=== PATIENT | female | born 1965 | race Caucasian/White ===

== ENCOUNTER 2020-02-15 16:33 | Emergency (ER) | payer OTHER, SELFPAY ==
[2020-02-15 16:41] VITALS: BP 122/80; PULSE 116; RESP 14; TEMP 37.1; O2SAT 96; BMI 37.2
[2020-02-15] MEDS: ondansetron 4 MG Tablet PO (16:50)
[2020-02-15 17:49] LABS: Basophils % 0.1 %; Eosinophils % 0.1 %; Hematocrit 50.6 % (37.0-47.0); Hemoglobin 16.7 g/dL (11.5-15.3); Lymphocytes # 0.6 10^3/uL (0.8-4.8); Lymphocytes % 4.3 %; Mean Corpuscular Hemoglobin 29.7 pg (28.0-34.0); Mean Corpuscular Volume 89.9 fL (81-99); Mean Platelet Volume 9.5 fL (7.4-10.4); Monocytes # 0.2 10^3/uL (0.2-0.9); Monocytes % 1.5 %; Neutrophils # 13.2 10^3/uL (1.8-7.7); Neutrophils % 93.7 %; Nucleated Red Blood Cells % 0 %; Platelet Count 228 10^3/cmm (130-400); Red Blood Count 5.63 10^6/uL (4.1-5.3); Red Cell Distribution Width 12.8 % (12.1-15.1); White Blood Count 14.1 10^3/uL (4.0-10.0)
[2020-02-15 18:13] LABS: Alanine Aminotransferase 26 U/L (0-33); Albumin Level 4.5 g/dL (3.5-5.2); Alkaline Phosphatase 86 IU/L (35-105); Anion Gap 18.4 (5-19); Aspartate Amino Transferase 25 U/L (0-32); Blood Urea Nitrogen 17 mg/dL (6-20); Calcium 10.3 mg/dL (8.5-10.5); Carbon Dioxide 24 mmol/L (22-29); Chloride 100 mmol/L (98-107); Globulin 2.9 g/dL (1.3-4.6); Glomerular Filtration Rate 74.5 mL/min (90-130); Glucose 177 mg/dL (65-115); Lipase 19 U/L (13-60); Osmolality Calculated 287 mOsm/kg (285-295); Potassium 4.4 mmol/L (3.5-5.1); Sodium 138 mmol/L (136-145); Total Bilirubin 0.5 mg/dL (0.15-1.2); Total Protein 7.4 g/dL (6.6-8.7)
--- NOTE | 2020-02-15 18:23 | US_ITS ---
WS: [id number] RIGHT UPPER QUADRANT ULTRASOUND HISTORY: Pain COMPARISON: None available. Liver: 19.0 cm in length. Mildly enlarged liver with diffuse hepatic steatosis and attenuation. Focal fatty sparing near the gallbladder fossa. The entire liver is not evaluated adequately due to exclud e neoplasm or mass. No bile duct dilatation. Gallbladder: Normally distended gallbladder with no stones or wall thickening. CBD: 0.5 cm Pancreas: Normal size and echogenicity. Right kidney: 11.6 cm in length. Normal size and echogenicity. No hydronephrosis. Cortical cyst in th e mid kidney measures 1.3 x 1.9 x 1.1 cm. No solid mass. Aorta and IVC: Unremarkable. No ascites. US/US gall bladder [id number] IMPRESSION: 1. Normal gallbladder. 2. Moderate hepatomegaly with severe hepatic steatosis and areas of sparing.
--- NOTE | 2020-02-15 18:32 | W.ED.ABDPA2 ---
HPI - Abdominal Pain General: Chief Complaint: Abdominal Pain Stated Complaint: abd pain, n/v Time Seen by Provider: 02/15/20 18:14 Source: patient and family Mode of arrival: ambulatory Limitations: no limitations History of Present Illness: HPI narrative: Staci is a 54-year-old female who comes in complaining of not quite 24 hours of pain in her right flank and right upper quadrant. She says it started with UTI symptoms last night and then at 4 AM she developed right upper quadrant and right flank pain. She is had numerous episodes of vomiting but denies any diarrhea. The patient states she is chronically constipated secondary to pain medications that she takes. Denies any chest pain or shortness of breath. She denies any blood in her emesis. Patient states she feels like this is just a bad UTI. She is unaware of anything that makes her symptoms better or worse. She is really not tried anything at home for this other than just resting. Associated Symptoms: Reports vomiting; Denies chills, coffee ground emesis, GI cramping, diarrhea, dysuria, fever(s), heartburn, hematochezia, hematuria, hematemesis, melena and syncope Review of Systems Const: Denies: fever(s), chills, body aches, fatigue, malaise or diaphoresis Eyes: Denies: change in vision, blurry vision, blind spots or photophobia ENMT: Denies: throat pain, odynophagia, hoarseness, swelling of lips/tongue, ear or mastoid pain, ear discharge, change in hearing or nasal discharge Card: Denies: chest pain, palpitations, irregular heart rhythm, edema, lightheadedness, syncope, pre-syncope, dyspnea on exertion or orthopnea Resp: Denies: dyspnea, productive cough, non-productive cough, wheezing, hemoptysis or chest congestion GI: Reports: abdominal pain and vomiting; Denies: hematemesis, coffee ground emesis, heartburn, diarrhea, GI cramping, hematochezia or melena : Denies: flank pain, dysuria, urinary frequency, urinary urgency or hematuria Musc: Denies: neck pain, back pain, extremity pain, extremity swelling, joint pain, joint swelling, joint redness, joint warmth or joint stiffness Skin/Breast: Denies: rash, pruritus, erythema, skin tenderness or jaundice Neuro: Denies: headache(s), numbness in extremities, weakness in extremities, sensory changes, lack of coordination, difficulty walking, dizziness, vertigo, confusion or Slurred speech present Benjamin/Lymph: Denies: easy bruising, easy bleeding, petechiae, purpura or enlarged lymph nodes All/Imm: Denies: urticaria, throat swelling, tongue swelling, facial swelling or acute wheezing PFSH ED PFSH: Medical History Chronic pain DM type 2 (diabetes mellitus, type 2) Hypertension Surgical History H/O: hysterectomy Social History Smoking and tobacco status: never smoked Physical Exam Const: COMMON NORMALS: no acute distress, patient oriented x3, no limitations, healthy appearing and well nourished GENERAL APPEARANCE: cooperative, well kempt and well developed HENMT: COMMON NORMALS: normocephalic, atraumatic, external ears normal, EAC's normal and Normal external nose present HEAD & SCALP: normal to inspection, normocephalic and atraumatic FACE & SINUS: normal facial exam and face symmetric NOSE: Normal external nose present and Normal nares present EXTERNAL EAR: Yes external ears normal EXTERNAL AUDITORY CANAL: EAC's normal MOUTH: Normal oral and palatal mucosa present, lip normal and tongue normal Eye: COMMON NORMALS: Equal, round and reactive pupils present and conjunctivae normal GENERAL EYE: appearance normal, both eyes and all related structures ALIGNMENT: Yes alignment normal PERIORBITAL: periorbital findings normal EYELID: eyelids normal CONJUNCTIVA: Yes conjunctivae normal SCLERA: sclerae normal PUPIL: Yes Equal, round and reactive pupils present Neck/C-Spine: COMMON NORMALS: full ROM, no lymphadenopathy, supple, no meningeal signs and no JVD GENERAL: Yes normal visual inspection and Yes trachea midline Chest: COMMONS NORMALS: normal inspection of the chest and normal palpation of entire chest wall Resp: COMMON NORMALS: normal respiratory effort, No retractions and No use of accessory muscles EFFORT & INSPECTION: Yes able to speak in complete sentences and Yes symmetric chest movement AUSCULTATION: no crackles, no rales, no rhonchi and no wheezes Cardio: COMMON NORMALS: no JVD, regular rate, regular rhythm, S1 normal heart sound present and S2 normal heart sound present RATE: regular rate RHYTHM: regular rhythm HEART SOUNDS: S1 normal heart sound present, S2 normal heart sound present, no click, no gallops, no murmurs, no rubs and abnormal split S2 GI: COMMON NORMALS: Soft to palpation and No hepatosplenomegaly present PALPATION: Yes Soft to palpation, Yes Tenderness to palpation present (GI) (Mild in right upper quadrant/right flank), No Guarding due to palpation present (GI), No Rigid due to palpation, Yes No hepatosplenomegaly present, No Hernia present, No Palpable mass present and No Pulsatile mass present : COMMON NORMALS: Yes no CVA tenderness BLADDER/KIDNEY EXAM: Yes no CVA tenderness EXTERNAL FEMALE EXAM: No Hernia present Back/Pelvis: COMMON NORMALS: no CVA tenderness, thoracic and lumbar spine normal to inspection, no thoracic nor lumbar tenderness and thoraco-lumbar ROM normal Extremity: COMMON NORMALS: normal to inspection, full ROM, capillary refill normal, no joint enlargement, no clubbing, cyanosis or edema and no calf tenderness Neuro: COMMON NORMALS: patient oriented x3, CN's II-XII intact bilaterally, moves all extremities, no focal motor deficits and no sensory deficits noted MENINGEAL SIGNS: Yes no meningeal signs SPEECH: speech normal Psych: COMMON NORMALS: mental status grossly normal, Normal thought process present, cooperative, normal affect, speech normal and activity/motor behavior normal APPEARANCE: Yes well kempt SPEECH: Yes normal speech THOUGHT PROCESS: Normal thought process present Skin: COMMON NORMALS: no rashes or lesions noted, turgor normal, no jaundice, no petechiae and no mottling GENERAL SKIN EXAM: no rashes or lesions noted and turgor normal Course Vital Signs: Vital signs: Vital Signs Temperature 98.7 F 02/15/20 16:41 Pulse Rate 96 02/15/20 21:56 Respiratory Rate 18 02/15/20 21:56 Blood Pressure 128/66 02/15/20 21:56 Pulse Oximetry 100 02/15/20 21:56 MDM - Abdominal Pain MDM Narrative: Medical decision making narrative: Ms. Raman is a very nice 54-year-old female who comes in complaining of right-sided flank and right upper quadrant pain. Ultrasound of her gallbladder is unremarkable. The kidney on that ultrasound did not look remarkable either. Urinalysis reveals UTI. Her symptoms of nausea vomiting and subjective fever with urinary symptoms inclined be toward pyelonephritis. I do not believe the patient needs imaged at this time as I see no sign of ureteral stone. Patient's not vomited here, she is afebrile she is minimally tachycardic but this is improved and almost resolved with IV fluids. Nonetheless because of the vomiting history have offered to put her in the hospital but she is declining. She would like to go home. I have informed her that I want to make certain that she can keep down oral fluids here and her heart rate resolves and as long as she achieves this we will let her go home per her desires. She understands she welcome to return at any time should her symptoms change or worsen. Lab Data: Attestation: I reviewed the patient's lab results. Labs: Lab Results 02/15/20 02/15/20 02/15/20 Range/Units 17:45 17:45 19:01 WBC 14.1 H (4.0-10.0) 10^3/ uL RBC 5.63 H (4.1-5.3) 10^6/u L Hgb 16.7 H (11.5-15.3) g/dL Hct 50.6 H (37.0-47.0) % MCV 89.9 (81-99) fL MCH 29.7 (28.0-34.0) pg MCHC 33.0 (30.0-36.0) g/dL RDW 12.8 (12.1-15.1) % Plt Count 228 (130-400) 10^3/c mm MPV 9.5 (7.4-10.4) fL Neut % (Auto) 93.7 % Lymph % (Auto) 4.3 % [place] % (Auto) 1.5 % Eos % (Auto) 0.1 % Baso % (Auto) 0.1 % Neut # (Auto) 13.2 H (1.8-7.7) 10^3/u L Lymph # (Auto) 0.6 L (0.8-4.8) 10^3/u L [place] # (Auto) 0.2 (0.2-0.9) 10^3/u L Eos # (Auto) 0.0 (0.0-0.8) 10^3/u L Baso # (Auto) 0.0 (0.0-0.1) 10^3/u L Nucleated RBC % (a uto) 0 % Nucleated RBCs # 0.0 /100WBC Sodium 138 (136-145) mmol/L Potassium 4.4 (3.5-5.1) mmol/L Chloride 100 (98-107) mmol/L Carbon Dioxide 24 (22-29) mmol/L Anion Gap 18.4 (5-19) BUN 17 (6-20) mg/dL Creatinine 0.8 (0.5-0.9) mg/dL GFR Calculation 74.5 L (90-130) mL/min Glucose 177 H (65-115) mg/dL Calculated Osmolal ity 287 (285-295) mOsm/k g Calcium 10.3 (8.5-10.5) mg/dL Total Bilirubin 0.5 (0.15-1.2) mg/dL AST 25 (0-32) U/L ALT 26 (0-33) U/L Alkaline Phosphata se 86 (35-105) IU/L Total Protein 7.4 (6.6-8.7) g/dL Albumin 4.5 (3.5-5.2) g/dL Globulin 2.9 (1.3-4.6) g/dL Lipase 19 (13-60) U/L Urine Color Yellow (Yellow) Urine Appearance Cloudy (CLEAR) Urine pH 5 (5-7) Ur Specific [place]it y 1.015 (1.005-1.030) Urine Protein Neg (Negative) Urine Glucose (UA) Norm (Normal) Urine Ketones Negative (Negative) Urine Blood Neg (Negative) Urine Nitrate Positive H (Negative) Urine Bilirubin Neg (NEGATIVE) Urine Urobilinogen Norm (Negative) mg/dL Ur Leukocyte Sunshine ase 1+ H (Negative) Urine RBC None (0-2) /hpf Urine WBC 15-25 H (0-5) /hpf Ur Squamous Epith Cells 0-4 H (0-5) Urine Bacteria 4+ H (NONE) Imaging Data ^: US: My impression: Tech interpretation, ultrasound abdomen -dense liver with fatty, normal gallbladder, normal common bile duct, right kidney cyst. Discharge Plan Discharge Patient Disposition: Home, Self-Care Clinical Impression: Pyelonephritis Condition: Stable Prescriptions: New Zofran 4 mg tablet 4 mg PO Q6H PRN (Reason: nausea and vomiting) Qty: 20 RF: 0 cefdinir 300 mg capsule 300 mg PO Q12H 10 Days Qty: 20 RF: 0 No Action gabapentin 600 mg Tablet 600 mg PO QID RF: 0 aspirin 325 mg Tablet 325 mg PO PRN PRN (Reason: Pain) RF: 0 potassium chloride 10 mEq tablet extended release 10 meq PO BID RF: 0 glimepiride 2 mg tablet 2 mg PO BID RF: 0 metformin 1,000 mg tablet 1,000 mg PO BID RF: 0 acetaminophen-codeine 300-60 mg tablet 1 tab PO Q4H PRN (Reason: Pain) RF: 0 Stool Softener 250 mg Capsule 250 mg PO PRN PRN (Reason: Constipation) RF: 0 atenolol 50 mg Tablet 50 mg PO BID RF: 0 Valium 5 mg tablet 10 mg PO PRN PRN (Reason: Anxiety) RF: 0 bupropion HCl 300 mg Tablet Extended Release 24 Hr 300 mg PO QAM RF: 0 Discharge Orders: Discharge Order (Routine); Ordered 02/15/20 Ordered By: Allegra Fontanez Discharge Diet: Advance as tolerated and Clear Liquid Discharge Activity: Increase activity as tolerated Patient Instructions: Acute Pyelonephritis (ED) Activity Restrictions/Additional Instructions: Please return to the ER immediately for any of the signs or symptoms listed on your discharge instruction sheets, worsening/changing of your symptoms, you are not getting better as quickly as expected, or for ANY other cause or concerns. You have been offered further evaluation and care but have declined, if your symptoms change or worsen you are more than welcome to return at any time for recheck and further evaluation and care. Discharge Date/Time: 02/15/20 21:58 Coding Level of Care Code ED Landing Worker for Alejandra Fwd Exam Comprehensive
[2020-02-15] MEDS: sodium chloride 0.9% 1,000 ML 999 ML IV ×2 (18:57→21:19)
[2020-02-15] MEDS: ondansetron 2 mg/ML SDV 2 mL 4 MG IVP (18:57)
[2020-02-15 18:59] VITALS: RESP 18
[2020-02-15] MEDS: morphine 4 mg/mL SDV 1 mL IVP (18:59)
[2020-02-15 19:38] LABS: Urine Appearance Cloudy (CLEAR); Urine Color Yellow (Yellow)
[2020-02-15 19:39] LABS: Add Urine Microscopic? YES; Bilirubin Urine Neg (NEGATIVE); Blood Urine Neg (Negative); Glucose Urine UA Norm (Normal); Ketones Urine Negative (Negative); Leukocyte Esterase Urine 1+ (Negative); Nitrate Urine Positive (Negative); Protein Urine Neg (Negative); Specific Gravity, Urine 1.015 (1.005-1.030); Urobilinogen Urine Norm (Negative); pH Urine 5 (5-7)
[2020-02-15 19:40] LABS: Add Urine Culture? Yes; Bacteria Urine 4+; Squamous Epithelial Cell Urine 0-4 (0-5); WBC Urine 15-25 /hpf (0-5)
[2020-02-15] MEDS: sodium chloride 0.9% 1,000 ML 100 ML IV (19:43)
[2020-02-15 19:50] VITALS: BP 150/92; PULSE 112; RESP 18; O2SAT 96
[2020-02-15 20:32] VITALS: RESP 16; O2SAT 96
[2020-02-15] MEDS: HYDROmorphone 1 mg/mL INJ 1 mL 0.5 MG IVP (20:32)
[2020-02-15 20:34] VITALS: BP 142/88; PULSE 103; RESP 16; O2SAT 96
[2020-02-15] MEDS: cefTRIAXone 1,000 MG in sodium chloride 0.9% (plus) 50 ML 100 MG IV (21:17)
[2020-02-15 21:56] VITALS: BP 128/66; PULSE 96; RESP 18; O2SAT 100
== END 2020-02-15 21:58 | disposition home or self-care (01) ==
PROVIDERS: Physician Assistant; Emergency Provider Emergency Medicine
DX: N12 Tubulo-interstitial nephritis, not specified as acute or chronic (principal); Z79.82 Long term (current) use of aspirin; Z79.84 Long term (current) use of oral hypoglycemic drugs; E11.9 Type 2 diabetes mellitus without complications; I10 Essential (primary) hypertension
CPT/HCPCS: 12345; 76705; 80053; 81001; 83690; 85025; 87077; 87086; 87186; 96361; 96365; 96375; 99284; J0131; J0696; J1170; J2270; J2405; J7030; Q0162

== ENCOUNTER 2021-10-02 13:35 | Outpatient (CLI) | payer OTHER, SELFPAY ==
--- NOTE | 2021-10-02 13:46 | MM_ITS ---
WS: [id number] BILATERAL DIGITAL SCREENING MAMMOGRAPHY WITH CAD CLINICAL INFORMATION: SCREENING HISTORY: Screening mammogram. No current complaints. COMPARISON: March 14, 2019. TECHNIQUE: Bilateral CC and MLO views. FINDINGS: Scattered fibroglandular densities bilaterally. A few incidental punctate calcifications. No suspicio us focal mass, asymmetry, calcifications, or architectural distortion. No evidence of malignancy. MM/[place] [id number] IMPRESSION: BI-RADS: 2-Benign FOLLOW UP: 1 Year Follow-up Recommend return to annual screening mammography..
== END 2021-10-02 13:36 | disposition home or self-care (01) ==
PROVIDERS: Visit Provider Family Medicine
DX: Z12.31 Encounter for screening mammogram for malignant neoplasm of breast (principal)
CPT/HCPCS: 77067

== ENCOUNTER 2023-12-19 09:07 | Emergency (ER) | payer OTHER, SELFPAY ==
[2023-12-19 09:14] VITALS: BP 128/93; PULSE 103; RESP 16; TEMP 37.3; O2SAT 96
--- NOTE | 2023-12-19 09:15 | ECG_ITS ---
[facility] Test Date: 2023-12-19 Pat Name: Staci Lyman Department: Room: Gender: Female Banquet Supervisor: : 1965 Requested By: Sarath Harman Order Number: [id number] April MD: Katelynn Clark M.D. Measurements Intervals [place] Rate: 97 P: 73 MS: 202 QRS: 55 QRSD: 90 T: 65 QT: 340 QTc: 433 Interpretive Statements SINUS RHYTHM Compared to ECG 09/26/2015 12:30:17 No significant changes Electronically Signed On 12-19-2023 20:59:16 CDT by Katelynn Clark M.D. [email or web address]
--- NOTE | 2023-12-19 09:21 | XRR_ITS ---
PROCEDURE INFORMATION: Exam: XR Chest Exam date and time: 12/19/2023 9:24 AM Age: 58 years old Clinical indication: Cough and dyspnea; Additional info: Dyspnea/cough TECHNIQUE: Imaging protocol: Radiologic exam of the chest. Views: 1 view. COMPARISON: No relevant prior studies available. FINDINGS: Lungs: Unremarkable. No consolidation. Pleural spaces: Unremarkable. No pleural effusion. No pneumothorax. Heart/Mediastinum: Unremarkable. No cardiomegaly. Bones/joints: Unremarkable. XR/XR chest 1V portable [id number] IMPRESSION: No acute findings.
[2023-12-19 09:29] LABS: Eosinophils # 0.1 10^3/uL (0.0-0.8); Eosinophils % 1.8 %; Hematocrit 47.9 % (36-47); Lymphocytes # 0.7 10^3/uL (0.8-4.8); Lymphocytes % 14.5 %; Mean Corpuscular HGB Conc 33.6 g/dL (30-55); Mean Corpuscular Hemoglobin 29.9 pg (27-33); Monocytes # 0.3 10^3/uL (0.2-0.9); Monocytes % 6.5 %; Neutrophils # 3.92 10^3/uL (1.8-7.7); Neutrophils % 76.8 %; Nucleated Red Blood Cells % 0 %; Platelet Count 152 10^3/cmm (157-399); Red Blood Count 5.38 10^6/uL (3.85-5.65); Red Cell Distribution Width 12.4 % (12.1-15.1)
--- NOTE | 2023-12-19 09:33 | W.ED.ABDPA2 ---
HPI - Abdominal Pain General: Chief Complaint: Abdominal Pain Stated Complaint: back pain, trouble urinating, sob Time Seen by Provider: 12/19/23 09:21 Source: patient Mode of arrival: ambulatory History of Present Illness: 58-year-old female presents emergency room complaining of periumbilical abdominal discomfort and left flank pain. She has had some diarrhea and vomiting no hematochezia or melena. No dysuria urgency or frequency. States she has difficulty initiating urination. No fever sweats or chills symptoms been going on for the last 2 to 3 days MD elicited complaint: abdominal pain Associated Symptoms: Denies chills, dysuria and fever(s) Review of Systems Const: Denies: fever(s) or chills Card: Denies: chest pain Resp: Denies: dyspnea GI: Denies: abdominal pain : Denies: dysuria, urinary frequency or urinary urgency Musc: Denies: neck pain or back pain Skin/Breast: Denies: rash PFSH ED PFSH: Medical History (Updated 12/19/23 @ 10:46 by Sarath Adams DO) Chronic pain DM type 2 (diabetes mellitus, type 2) Hypertension Surgical History H/O: hysterectomy Social History Smoking and tobacco/nicotine status: never used tobacco/nicotine Physical Exam Const: COMMON NORMALS: no acute distress GENERAL APPEARANCE: cooperative and comfortable ORIENTATION/CONSCIOUSNESS: Yes awake, Yes oriented to person, Yes oriented to place and Yes oriented to time HENMT: COMMON NORMALS: normocephalic, atraumatic and hearing grossly normal bilaterally HEAD & SCALP: normocephalic and atraumatic Resp: COMMON NORMALS: normal respiratory effort, No retractions, No use of accessory muscles and clear to auscultation bilaterally AUSCULTATION: clear to auscultation bilaterally Cardio: COMMON NORMALS: regular rate, regular rhythm and No murmurs present (Cardio) RATE: regular rate RHYTHM: regular rhythm GI: COMMON NORMALS: Soft to palpation and No hepatosplenomegaly present AUSCULTATION: Yes normoactive bowel sounds PALPATION: Yes Soft to palpation, No Tenderness to palpation present (GI), No Guarding due to palpation present (GI) and Yes No hepatosplenomegaly present Extremity: COMMON NORMALS: normal to inspection, capillary refill normal, no clubbing, cyanosis or edema, no calf tenderness and no pedal edema Neuro: SENSORIUM/ORIENTATION: Yes oriented to person, Yes oriented to place and Yes oriented to time Skin: COMMON NORMALS: no rashes or lesions noted GENERAL SKIN EXAM: no rashes or lesions noted Course Vital Signs: Vital signs: Vital Signs Temperature 99.2 F 12/19/23 09:14 Pulse Rate 92 12/19/23 11:05 Respiratory Rate 16 12/19/23 09:14 Blood Pressure 156/90 12/19/23 11:05 Pulse Oximetry 93 12/19/23 11:05 Oxygen Delivery Me thod Room Air 12/19/23 09:44 MDM - Abdominal Pain Medical Decision Making CT shows mesenteric lymphadenitis. No acute CT abd/pelvis findings. US negative. Clear liquid diet, promethazine and hydrocodone as needed. Medical Records I reviewed the patient's medical records. Lab Data I reviewed the patient's lab results. 12/19/23 09:22 12/19/23 09:22 Labs/Radiology: Radiology Impressions Chest X-Ray 12/19/23 09:21 IMPRESSION: No acute findings. Abdomen/Pelvis CT 12/19/23 09:58 IMPRESSION: 1. No evidence of appendicitis. Multiple small nonspecific prominent lymph nodes in the mesenteric fat, likely representing mesenteric adenitis/enteritis. 2. Diffuse hepatic steatosis. 3. Hepatomegaly. COMMENTS: Consistent with the [place] [employer]'s Incidental Findings Committee white paper (J Am Franck Radiol 2018): Any incidental renal lesion less than 1 cm or classified as too small to characterize, or any incidental cystic renal lesion characterized as simple-appearing, is likely benign. No follow-up imaging is recommended for these lesions per consensus recommendations based on imaging criteria. Laboratory Results WBC 5.10 10^3/uL (3.29-11.43) 12/19/23 09:22 RBC 5.38 10^6/uL (3.85-5.65) 12/19/23 09:22 Hgb 16.10 g/dL (11.27-16.99) 12/19/23 09:22 Hct 47.9 % (36-47) H 12/19/23 09:22 MCV 89.0 fl (85-98) 12/19/23 09: MCH 29.9 pg (27-33) 12/19/23 09: MCHC 33.6 g/dL (30-55) 12/19/23 09:22 RDW 12.4 % (12.1-15.1) 12/19/23 09:22 Plt Count 152 10^3/cmm (157-399) L 12/19/23 09:22 MPV 9.0 fL (7.4-10.4) 12/19/23 09:22 Neut % (Auto) 76.8 % 12/19/23 09:22 Lymph % (Auto) 14.5 % 12/19/23 09:22 [place] % (Auto) 6.5 % 12/19/23 09:22 Eos % (Auto) 1.8 % 12/19/23 09:22 Baso % (Auto) 0.0 % 12/19/23 09: Neut # (Auto) 3.92 10^3/uL (1.8-7.7) 12/19/23 09:22 Lymph # (Auto) 0.7 10^3/uL (0.8-4.8) L 12/19/23 09:22 [place] # (Auto) 0.3 10^3/uL (0.2-0.9) 12/19/23 09:22 Eos # (Auto) 0.1 10^3/uL (0.0-0.8) 12/19/23 09:22 Baso # (Auto) 0.0 10^3/uL (0.0-0.1) 12/19/23 09: Nucleated RBC % (auto) 0 % 12/19/23 09: Nucleated RBCs # 0.0 /100WBC 12/19/23 09:22 Sodium 136 mmol/L (136-145) 12/19/23 09:22 Potassium 3.9 mmol/L (3.5-5.1) 12/19/23 09:22 Chloride 98 mmol/L (98-107) 12/19/23 09:22 Carbon Dioxide 25 mmol/L (22-29) 12/19/23 09:22 Anion Gap 16.9 (5-19) 12/19/23 09:22 BUN 9 mg/dL (6-20) 04/14/24 09:22 Creatinine 0.8 mg/dL (0.5-0.9) 12/19/23 09:22 GFR Calculation 73.4 mL/min (90-130) L 12/19/23 09:22 Glucose 169 mg/dL (65-115) H 12/19/23 09:22 Calculated Osmolality 285 mOsm/kg (285-295) 12/19/23 09:22 Calcium 9.7 mg/dL (8.5-10.5) 12/19/23 09:22 Total Bilirubin 0.7 mg/dL (0.15-1.2) 12/19/23 09:22 AST 36 U/L (0-32) H 12/19/23 09:22 ALT 31 U/L (0-33) 12/19/23 09:22 Alkaline Phosphatase 76 U/L (35-105) 12/19/23 09:22 Total Protein 7.5 g/dL (6.6-8.7) 12/19/23 09:22 Albumin 4.2 g/dL (3.5-5.2) 12/19/23 09:22 Globulin 3.3 g/dL (1.3-4.6) 12/19/23 09:22 Urine Color Yellow (Yellow) 12/19/23 09:40 Urine Appearance Clear (CLEAR) 12/19/23 09:40 Urine pH 6 (5-7) 12/19/23 09:40 Ur Specific [place] 1.015 (1.005-1.030) 12/19/23 09:40 Urine Protein Neg (Negative) 12/19/23 09:40 Urine Glucose (UA) Norm (Normal) 12/19/23 09:40 Urine Ketones Negative (Negative) 12/19/23 09:40 Urine Blood Neg (Negative) 12/19/23 09:40 Urine Nitrate Negative (Negative) 12/19/23 09:40 Urine Bilirubin Neg (Negative) 12/19/23 09:40 Urine Urobilinogen Norm mg/dL (Negative) 12/19/23 09:40 Ur Leukocyte Esterase Negative (Negative) 12/19/23 09:40 All radiology interpretation(s) finalized by discharge Discharge Plan Discharge Patient Disposition: Home Clinical Impression: Acute mesenteric lymphadenitis Condition: Stable Prescriptions: New hydrocodone-acetaminophen 5-325 mg tablet 1 tab PO Q6H PRN (Reason: pain) Qty: 10 0RF promethazine 25 mg tablet 25 mg PO Q6H PRN (Reason: nausea and vomiting) Qty: 20 0RF No Action gabapentin 600 mg Tablet 600 mg PO TID metformin 1,000 mg tablet 1,000 mg PO DAILY acetaminophen-codeine 300-60 mg tablet 1 tab PO TID PRN (Reason: Pain) diazepam [Valium] 5 mg tablet 2.5 - 5 mg PO BEDTIME PRN (Reason: Sleep) metoprolol tartrate 50 mg Tablet 50 mg PO BID Advil 200 mg Tablet 200 mg PO Q6H PRN (Reason: Pain) Prozac 20 mg Capsule 20 mg PO DAILY bupropion HCl 300 mg tablet extended release 24 hr 300 mg PO QAM Ozempic 1 mg/dose (4 mg/3 mL) Pen Injector 1 mg SUBCUT Q7D Rx Instructions: on sat Discharge Orders: Discharge ED (Routine); Ordered 12/19/23 Ordered By: Sarath Adams Referrals: Kaise Galan DO [Primary Care Provider] - Discharge Diet: Clear Liquid Discharge Activity: Increase activity as tolerated Patient Instructions: Opioid Safety, Pain Management Activity Restrictions/Additional Instructions: Thank you for choosing [facility] for your healthcare needs today. Please realize this is an emergency room and that we are providing you with a medical screening exam and this may not be complete and all inclusive of all the testing and or work up that you may need to determine your ailment or severity of your illness. It is very important that you follow up as instructed or that you return to the Emergency Department should you have concerns or if your condition changes or worsens in any way. You are seen today for abdominal pain CT shows mesenteric lymphadenitis. You urine was normal appendix was normal. Clear liquid diet for the next 2 days then advance as tolerated you can use the pain nausea medications as needed if symptoms worsen or change recheck Coding Level of Care Code ED Mobile Designer for Alejandra Escamilla
[2023-12-19 09:44] VITALS: BP 128/97; PULSE 98; O2SAT 97
[2023-12-19 09:44] LABS: Alanine Aminotransferase 31 U/L (0-33); Albumin Level 4.2 g/dL (3.5-5.2); Alkaline Phosphatase 76 U/L (35-105); Anion Gap 16.9 (5-19); Aspartate Amino Transferase 36 U/L (0-32); Blood Urea Nitrogen 9 mg/dL (6-20); Calcium 9.7 mg/dL (8.5-10.5); Carbon Dioxide 25 mmol/L (22-29); Chloride 98 mmol/L (98-107); Creatinine Clr Calc Pharmacy 97.4443; Globulin 3.3 g/dL (1.3-4.6); Glomerular Filtration Rate 73.4 mL/min (90-130); Glucose 169 mg/dL (65-115); Osmolality Calculated 285 mOsm/kg (285-295); Potassium 3.9 mmol/L (3.5-5.1); Sodium 136 mmol/L (136-145); Total Bilirubin 0.7 mg/dL (0.15-1.2); Total Protein 7.5 g/dL (6.6-8.7)
[2023-12-19 09:56] LABS: Add Urine Microscopic? NO; Charge for UA Resulting for Rev
--- NOTE | 2023-12-19 09:58 | CTR_ITS ---
PROCEDURE INFORMATION: Exam: CT Abdomen And Pelvis Without Contrast Exam date and time: 12/19/2023 10:11 AM Age: 58 years old Clinical indication: Abdominal pain; Generalized; Prior surgery; Surgery date: 6+ months; Surgery type: Hyster, TECHNIQUE: Imaging protocol: Computed tomography of the abdomen and pelvis without contrast. Radiation optimization: All CT scans at this facility use at least one of these dose optimization techniques: automated exposure control; mA and/or kV adjustment per patient size (includes targeted exams where dose is matched to clinical indication); or iterative reconstruction. COMPARISON: CR (CHEST, ) 12/19/2023 9:24 AM RADIATION DOSE METRICS: Total DLP (mGy-cm): 933.68 FINDINGS: Liver: There is a diffuse decrease in hepatic parenchymal density, consistent with fatty infiltration. The liver is enlarged. Gallbladder and bile ducts: Normal. No calcified stones. No ductal dilation. Pancreas: Normal. No ductal dilation. Spleen: Normal. No splenomegaly. Adrenal glands: Normal. No mass. Kidneys and ureters: No hydronephrosis or nephrolithiasis. Ureters are normal. Left renal 3 centimeter low attenuating cysts, and bilateral subcentimeter hypodensities too small to characterize further. Stomach and bowel: Unremarkable. No obstruction. No mucosal thickening. Appendix: No appendicitis. Intraperitoneal space: Unremarkable. No free air. No significant fluid collection. Vasculature: Scattered calcified atherosclerotic plaques of the abdominal aorta and iliac arteries without significant stenosis. Lymph nodes: Prominent mesenteric lymph nodes measuring up to 0.9 centimeters. There are multiple small nonspecific lymph nodes in the mesenteric fat of the right lower quadrant, but there are no nodes of pathologic dimensions present. Urinary bladder: Unremarkable as visualized. Reproductive: Unremarkable as visualized. Bones/joints: Chronic multilevel degenerative changes of the thoracolumbar spine with endplate sclerosis, space disc narrowing, and associated vacuum phenomena. No acute fractures, normal alignment. Moderate central canal narrowing at L1-L2, L2-L3, L3-L4, and L4-L5. Soft tissues: There is a fat-containing umbilical hernia. CT/CT abdomen pelvis wo con [id number] IMPRESSION: 1. No evidence of appendicitis. Multiple small nonspecific prominent lymph nodes in the mesenteric fat, likely representing mesenteric adenitis/enteritis. 2. Diffuse hepatic steatosis. 3. Hepatomegaly. COMMENTS: Consistent with the [employer]'s Incidental Findings Committee white paper (J Am Franck Radiol 2018): Any incidental renal lesion less than 1 cm or classified as too small to characterize, or any incidental cystic renal lesion characterized as simple-appearing, is likely benign. No follow-up imaging is recommended for these lesions per consensus recommendations based on imaging criteria.
[2023-12-19 10:05] LABS: Bilirubin Urine Neg (Negative); Blood Urine Neg (Negative); Glucose Urine UA Norm (Normal); Ketones Urine Negative (Negative); Leukocyte Esterase Urine Negative (Negative); Nitrate Urine Negative (Negative); Protein Urine Neg (Negative); Specific Gravity, Urine 1.015 (1.005-1.030); Urine Appearance Clear (CLEAR); Urine Color Yellow (Yellow); Urobilinogen Urine Norm (Negative); pH Urine 6 (5-7)
--- NOTE | 2023-12-19 10:16 | PC.PHAR ---
pt states she takes care of her own medications-pt states she takes the medications entered-pt states takes gabapentin 600mg tid rx filled 09/22/23 90d/s 600mg qid-pt states she takes metformin 1000mg daily rx filled for 1000mg bid-
--- NOTE | 2023-12-19 10:28 | ECG_ITS ---
[facility] Test Date: 2023-12-19 Pat Name: Staci Lyman Department: Room: Gender: Female [employer]: : 1965 Requested By: Sarath Harman Order Number: [id number] April MD: Katelynn Clark M.D. Measurements Intervals [place] [facility] Rate: 94 P: 71 TN: 188 QRS: 59 QRSD: 86 T: 64 QT: 342 QTc: 429 Interpretive Statements SINUS RHYTHM NONSPECIFIC T-WAVE ABNORMALITY Compared to ECG 09/26/2015 12:30:17 T-wave abnormality now present Electronically Signed On 12-19-2023 21:00:37 CDT by Katelynn Clark M.D. [id number]
[2023-12-19 11:05] VITALS: BP 156/90; PULSE 92; O2SAT 93
== END 2023-12-19 11:08 | disposition home or self-care (01) ==
PROVIDERS: Emergency Provider Family Medicine; PCP Family Medicine
DX: I88.0 Nonspecific mesenteric lymphadenitis (principal); Z79.84 Long term (current) use of oral hypoglycemic drugs; Z79.85 Long-term (current) use of injectable non-insulin antidiabetic drugs; E11.9 Type 2 diabetes mellitus without complications; I10 Essential (primary) hypertension
CPT/HCPCS: 71045; 74176; 80053; 81003; 85025; 93005; 99285